=== PATIENT | female | born 1975 | race Caucasian/White ===

== ENCOUNTER 2017-01-14 10:40 | Emergency (ER) | payer MEDICAID, OTHER ==
--- NOTE | 2017-01-14 11:14 | EDPHY ---
H & P Stated Complaint: abdominal pain starting this morning possible miscarriage Time Seen by Provider: 01/14/17 10:42 HPI/ROS: CHIEF COMPLAINT: abdominal cramping and vaginal bleeding HISTORY OF PRESENT ILLNESS: 41-year-old female presents emergency department reporting lower abdominal cramping and vaginal bleeding that started at 6 o' clock this morning. Patient reports she has only bled through 1 pad, she denies any clots or tissue. Patient reports the abdominal cramping is intermittent. Patient states she did a home test 2 days ago that was positive. Last menstrual cycle was 8 weeks ago. Patient has a living son, . Patient reports she takes hydroxyzine seen as needed for anxiety and stopped taking her Wellbutrin 2 days ago when she found out she was . Patient denies nausea, vomiting, fevers or diarrhea. She denies urinary frequency, urgency or dysuria. Patient denies drug or alcohol use. REVIEW OF SYSTEMS: A comprehensive 10 point review of systems is otherwise negative aside from elements mentioned in the history of present illness. Source: Patient, EMS - Personal History LMP (Females 10-55): Current Tetanus/Diphtheria Vaccine: Unsure Current Tetanus Diphtheria and Acellular Pertussis (TDAP): Unsure - Medical/Surgical History Hx Asthma: Yes Hx Chronic Respiratory Disease: No Hx Diabetes: No Hx Cardiac Disease: No Hx Renal Disease: No Hx Cirrhosis: Yes Hx Alcoholism: No Hx HIV/AIDS: No Hx Splenectomy or Spleen Trauma: No Other PMH: PTSD, anxiety, broken foot - Social History Smoking Status: Current every day smoker - Physical Exam Exam: Physical Exam Gen: Alert and Oriented, NAD HEENT: PERRL, moist mucous membranes NECK: no meningismus CV: regular rate and regular rhythm PULM: CTAB, no wheezes ABDOMEN: soft, mild suprapubic tenderness to palpation, BS present BACK: No CVA tenderness NEURO: Neurologically grossly intact EXTREMITIES: normal appearing SKIN: Few abrasions with bruises to bilateral arms PSYCH: answers questions appropriately. Constitutional: Initial Vital Signs Temperature (C) 36.7 C 01/14/17 10:40 Heart Rate 74 01/14/17 10:40 Respiratory Rate 20 01/14/17 10:40 Blood Pressure 122/71 H 01/14/17 10:40 O2 Sat (%) 100 01/14/17 10:40 O2 Delivery Mode Room Air Allergies/Adverse Reactions: Sulfa (Sulfonamide Antibiotics) [Sulfa(Sulfonamide Antibiotics)] Allergy (Severe , Verified 01/14/17 10:51) Anaphylaxis Penicillins Allergy (Verified 01/14/17 10:51) Home Medications: Medication Instructions Recorded Albuterol [Proventil Inhaler (RX)] 1 - 2 puffs IH Q4 PRN 12/01/12 Beclomethasone Qvar 40 [Qvar 40] 2 puffs IH BID #1 mdi 12/01/12 Ibuprofen 800 mg PO Q8 PRN 12/01/12 Multivitamins [Tab-A-Patrick] 1 each PO DAILY 12/01/12 hydrOXYzine HCL 01/14/17 Medical Decision Making - Diagnostics Imaging: Imaging Impressions Pelvic/Renal Ultrasound 01/14/17 11:33 Impression: 1. No IUP. 2. Collapsing left ovarian cyst. Results discussed with Paul Isaac. ED Course/Re-evaluation: 41-year-old female presents with abdominal cramping and vaginal bleeding. She reports a home test 2 days ago that was positive. Patient has a flat affect, does not look at me went speaking to me and has multiple rash needle beavers with small scabs, patient reports she was seen at an urgent care 2 days ago in [place] for anxiety and had a student nurse starting her IVs with multiple times. Patient will not give me the name of this urgent care. CBC and chemistry panel are unremarkable, serum test is negative. Urinalysis shows no evidence of infection. Pelvic ultrasound is unremarkable with no evidence of , no evidence ectopic . The patient is likely having her normal menstrual cycle with menstrual cramps. She reports she does normally get menstrual cramps these feel stronger than usual. She is given 15 mg of IV Toradol in the emergency department and is discharged home. She is given strict return precautions for any worsening symptoms, new symptoms or concerns. [facility] given [facility] for [facility] -[facility]. Differential Diagnosis: The differential diagnosis for the patient's vaginal bleeding included but was not limited to ectopic , menses, miscarriage, and dysfunctional uterine bleeding. - Data Points Laboratory Results: Laboratory Results 01/14/17 11:01 01/14/17 11:01 01/14/17 01/14/17 01/14/17 12:35 11:01 11:01 WBC RBC Hgb Hct MCV MCH MCHC RDW Plt Count MPV Neut % (Auto) Lymph % (Auto) [place] % (Auto) Eos % (Auto) Baso % (Auto) Nucleat RBC Rel Count Absolute Neuts (auto) Absolute Lymphs (auto) Absolute Monos (auto) Absolute Eos (auto) Absolute Basos (auto) Absolute Nucleated RBC Immature Gran % Immature Gran # Sodium 141 mEq/L mEq/L (134-144) Potassium 3.9 mEq/L mEq/L (3.5-5.2) Chloride 109 mEq/L mEq/L (97-110) Carbon Dioxide 25 mEq/l mEq/l (22-31) Anion Gap 7 mEq/L L mEq/L (8-16) BUN 17 mg/dL mg/dL (7-23) Creatinine 0.6 mg/dL mg/dL (0.6-1.0) Estimated GFR > 60 Glucose 100 mg/dL mg/dL (70-100) Calcium 9.0 mg/dL mg/dL (8.5-10.4) Beta HCG, Qual NEGATIVE Urine Color COLORLESS Urine Appearance CLEAR Urine pH 7.0 (5.0-7.5) Ur Specific [place] 1.004 (1.002-1.030) Urine Protein NEGATIVE (NEGATIVE) Urine Ketones NEGATIVE (NEGATIVE) Urine Blood 3+ H (NEGATIVE) Urine Nitrate NEGATIVE (NEGATIVE) Urine Bilirubin NEGATIVE (NEGATIVE) Urine Urobilinogen NEGATIVE EU EU (0.2-1.0) Ur Leukocyte Esterase NEGATIVE (NEGATIVE) Urine RBC 1-3 /hpf /hpf (0-3) Urine WBC Not Reported Ur Epithelial Cells TRACE /lpf /lpf (NONE-1+) Urine Bacteria TRACE /hpf H /hpf (NONE SEEN) Ur Culture Indicated? NOT INDICATED (NI) Urine Glucose NEGATIVE (NEGATIVE) 01/14/17 11:01 WBC 7.14 10^3/uL 10^3/uL (3.80-9.50) RBC 3.84 10^6/uL L 10^6/uL (4.18-5.33) Hgb 11.9 g/dL L g/dL (12.6-16.3) Hct 35.7 % L % (38.0-47.0) MCV 93.0 fL fL (81.5-99.8) MCH 31.0 pg pg (27.9-34.1) MCHC 33.3 g/dL g/dL (32.4-36.7) RDW 13.4 % % (11.5-15.2) Plt Count 267 10^3/uL 10^3/uL (150-400) MPV 8.7 fL fL (8.7-11.7) Neut % (Auto) 58.8 % % (39.3-74.2) Lymph % (Auto) 31.5 % % (15.0-45.0) [place] % (Auto) 7.4 % % (4.5-13.0) Eos % (Auto) 1.3 % % (0.6-7.6) Baso % (Auto) 0.7 % % (0.3-1.7) Nucleat RBC Rel Count 0.0 % % (0.0-0.2) Absolute Neuts (auto) 4.20 10^3/uL 10^3/uL (1.70-6.50) Absolute Lymphs (auto) 2.25 10^3/uL 10^3/uL (1.00-3.00) Absolute Monos (auto) 0.53 10^3/uL 10^3/uL (0.30-0.80) Absolute Eos (auto) 0.09 10^3/uL 10^3/uL (0.03-0.40) Absolute Basos (auto) 0.05 10^3/uL 10^3/uL (0.02-0.10) Absolute Nucleated RBC 0.00 10^3/uL 10^3/uL (0-0.01) Immature Gran % 0.3 % % (0.0-1.1) Immature Gran # 0.02 10^3/uL 10^3/uL (0.00-0.10) Sodium Potassium Chloride Carbon Dioxide Anion Gap BUN Creatinine Estimated GFR Glucose Calcium Beta HCG, Qual Urine Color Urine Appearance Urine pH Ur Specific [place] Urine Protein Urine Ketones Urine Blood Urine Nitrate Urine Bilirubin Urine Urobilinogen Ur Leukocyte Esterase Urine RBC Urine WBC Ur Epithelial Cells Urine Bacteria Ur Culture Indicated? Urine Glucose Departure - Departure Disposition: Home, Routine, Self-Care Clinical Impression: Dysmenorrhea Condition: Good Instructions: Dysmenorrhea (ED) Additional Instructions: Take 600 mg of ibuprofen every 8 hours with food for 3-5 days, heating pad to your abdomen. Follow up with [facility] for continued symptoms, return to the emergency department for any worsening symptoms, new symptoms or concerns. Referrals: [facility],. [Clinic] - As per Instructions
[2017-01-14 11:16] LABS: % IMMATURE GRANULYOCYTES 0.3 % (0.0-1.1); ABSOLUTE IMMATURE GRANULOCYTES 0.02 10^3/uL (0.00-0.10); ADD DIFF? NO; ADD MORPH? NO; ADD SCAN? NO; ATYPICAL LYMPHOCYTE FLAG 40 (0-99); FRAGMENT RBC FLAG 0 (0-99); HEMATOCRIT 35.7 % (38.0-47.0); HEMOGLOBIN 11.9 g/dL (12.6-16.3); LEFT SHIFT FLG 0 (0-99); LIPEMIA HEMOLYSIS FLAG 80 (0-99); MEAN CELL HEMOGLOBIN CONCENTR. 33.3 g/dL (32.4-36.7); MEAN PLATELET VOLUME 8.7 fL (8.7-11.7); PLATELET CLUMPS FLAG 0 (0-99); PLATELET COUNT 267 10^3/uL (150-400); RED BLOOD CELL COUNT 3.84 10^6/uL (4.18-5.33); RED CELL DISTRIBUTION WIDTH 13.4 % (11.5-15.2)
[2017-01-14 11:31] LABS: ANION GAP 7 mEq/L (8-16); CARBON DIOXIDE 25 mEq/l (22-31); CHLORIDE 109 mEq/L (97-110); CREATININE 0.6 mg/dL (0.6-1.0); GLOMERULAR FILTRATION RATE > 60; GLUCOSE 100 mg/dL (70-100); POTASSIUM 3.9 mEq/L (3.5-5.2); SODIUM 141 mEq/L (134-144)
[2017-01-14 12:07] VITALS: TEMP 98.2
[2017-01-14 12:44] LABS: COLOR COLORLESS; LEUKOCYTE ESTERASE,URINE NEGATIVE (NEGATIVE); NITRITE,URINE NEGATIVE (NEGATIVE)
[2017-01-14 12:51] LABS: BACTERIA TRACE /hpf (NONE SEEN)
[2017-01-14] MEDS ORDERED: KETOROLAC 15 MG/1 ML SDV ONE (12:57)
[2017-01-14 14:16] VITALS: BP 134/80; PULSE 80; RESP 16; O2SAT 96
== END 2017-01-14 14:16 | disposition home or self-care (01) ==
LOC: EDUNIT#
DX: N94.6 Dysmenorrhea, unspecified (principal); J45.909 Unspecified asthma, uncomplicated; F17.200 Nicotine dependence, unspecified, uncomplicated
CPT/HCPCS: J1885

== ENCOUNTER 2017-01-14 19:51 | Emergency (ER) | payer MEDICAID ==
--- NOTE | 2017-01-14 19:56 | EDPHY ---
H & P Stated Complaint: Heavy menstrual bleeding Time Seen by Provider: 01/14/17 20:42 HPI/ROS: This is a 41-year-old female presenting to the emergency department via EMS. EMS arrival patient was sleeping in the bed, EMS reports patient called due to increased abdominal pain and vaginal bleeding, blood glucose in the field with 67, VSS. Patient was seen earlier today for dysmenorrhea, patient states the pain has worsened and has gone through 4 pads heavy bleeding since this morning. Patient states her last menstrual period was 3 months ago, ultrasound from today negative HCG, negative IUP. REVIEW OF SYSTEMS: Constitutional: No fever no chills Eyes: No blurred vision ENT: No sore throat Respiratory: No shortness of breath Cardiac: No chest pain Gastrointestinal: Abdominal cramping Genitourinary: Vaginal bleeding on menses Musculoskeletal: No joint pain Skin: No rash Neurological: No headache or dizziness Source: Patient, EMS Exam Limitations: No limitations - Personal History LMP (Females 10-55): Irregular (on menses now) - Medical/Surgical History Hx Asthma: Yes Hx Chronic Respiratory Disease: No Hx Diabetes: No Hx Cardiac Disease: No Hx Renal Disease: No Hx Cirrhosis: Yes Hx Alcoholism: No Hx HIV/AIDS: No Hx Splenectomy or Spleen Trauma: No Other PMH: PTSD, anxiety, broken foot - Social History Smoking Status: Current every day smoker - Physical Exam Exam: CONSTITUTIONAL: patient appeared well nourished, non-ill appearing and normally developed. No acute distress. Vital signs as documented. HEENT: Normocephalic atraumatic. NECK: Supple, FROM without pain RESP: Non-labored resp effort, airway patent, CTAB CARDIAC: RRR w/o murmur, geraldine. Normal S1/S2 GI: Abd soft with suprapubic tenderness NEURO: AAOx3 ambulatory without gait disturbance EXTREMITIES: FROM without pain or difficulty. Positive cms intact SKIN: Warm and dry no rash PSYCH: Normal affect, calm, no distress Constitutional: Initial Vital Signs Temperature (C) 36.6 C 01/14/17 20:03 Heart Rate 83 01/14/17 20:03 Respiratory Rate 20 01/14/17 20:03 Blood Pressure 121/69 H 01/14/17 20:03 O2 Sat (%) 99 01/14/17 20:03 O2 Delivery Mode Room Air Allergies/Adverse Reactions: Sulfa (Sulfonamide Antibiotics) [Sulfa(Sulfonamide Antibiotics)] Allergy (Severe , Verified 01/14/17 20:02) Anaphylaxis Penicillins Allergy (Verified 01/14/17 20:02) Home Medications: Medication Instructions Recorded Albuterol [Proventil Inhaler (RX)] 1 - 2 puffs IH Q4 PRN 12/01/12 Beclomethasone Qvar 40 [Qvar 40] 2 puffs IH BID #1 mdi 12/01/12 Ibuprofen 800 mg PO Q8 PRN 12/01/12 Multivitamins [Tab-A-Patrick] 1 each PO DAILY 12/01/12 Wellbutrin Sr 01/14/17 hydrOXYzine HCL 01/14/17 Medical Decision Making ED Course/Re-evaluation: Discussed plan of care the patient: Toradol for pain control, I also reviewed previous medical records from today 2119: Patient feeling better, discussed discharge plan with patient will sent home with some pain medicine, she can also use ibuprofen [id number] at heating pad. Recommend following up with your primary care or mattress filling machine tender, patient agreed to plan. Discharge home---> stable, discussed plan of care Differential Diagnosis: Differential diagnosis considered but not limited to ovarian torsion, PCOS, ovarian cyst rupture - Data Points Medications Given: Discontinued Medications Ketorolac Tromethamine (Toradol) 30 mg IVP EDNOW ONE Stop: 01/14/17 20:05 Last Admin: 01/14/17 20:16 Dose: 30 mg Departure - Departure Disposition: Home, Routine, Self-Care Clinical Impression: Dysmenorrhea Condition: Good Additional Instructions: 1. you can take ibuprofen as needed 600 mg to 800 mg every 6-8 hours as needed 2. Warm heating pad to area 3. Follow up with your primary care provider or mattress filling machine tender as needed Referrals: [facility] [Other] - As per Instructions [facility],. [Clinic] - As per Instructions
[2017-01-14] MEDS ORDERED: KETOROLAC 30 MG/1 ML SDV IVP ONE (20:04)
[2017-01-14 20:06] VITALS: RESP 20
[2017-01-14] MEDS ORDERED: HYDROCOD/APAP 5/325 PREPACK#6 BTL TAKEHOME ONE (21:25)
[2017-01-14 22:30] VITALS: BP 113/68; PULSE 78; TEMP 98.2; O2SAT 98
== END 2017-01-14 22:30 | disposition home or self-care (01) ==
LOC: EDUNIT#
DX: N94.6 Dysmenorrhea, unspecified (principal); J45.909 Unspecified asthma, uncomplicated; F17.200 Nicotine dependence, unspecified, uncomplicated
CPT/HCPCS: 96374; J1885

== ENCOUNTER 2018-01-27 20:27 | Emergency (ER) | payer MEDICAID ==
--- NOTE | 2018-01-27 20:45 | EDPHY ---
H & P Source: Patient Exam Limitations: No limitations - Medical/Surgical History Hx Asthma: Yes Hx Chronic Respiratory Disease: No Hx Diabetes: No Hx Cardiac Disease: No Hx Renal Disease: No Hx Cirrhosis: Yes Hx Alcoholism: No Hx HIV/AIDS: No Hx Splenectomy or Spleen Trauma: No Other PMH: PTSD, anxiety, broken foot - Social History Smoking Status: Current every day smoker Time Seen by Provider: 01/27/18 20:44 HPI/ROS: CHIEF COMPLAINT: Headache following reported seizure HISTORY OF PRESENT ILLNESS: The patient presents to the ED with complaints of headache following a reported seizure. The patient was at [facility] where she reportedly had a normal CBC and chemistry panel. She has a history of polysubstance abuse. She is a alcoholic as well as narcotic abuser. She currently is receiving methadone. The patient complains of a headache with concerns that she has not been adequately evaluated for intracranial hemorrhage. She is requesting a head CT scan. The patient denies any abdominal pain, vomiting, numbness, weakness, neck pain, chest pain or difficulty breathing. REVIEW OF SYSTEMS: A comprehensive 10 point review of systems is otherwise negative aside from elements mentioned in the history of present illness. (Saroj Chavez) - Physical Exam Exam: General Appearance: Alert, slightly tremulous, no acute distress Eyes: Pupils equal and round no pallor or injection ENT, Mouth: Mucous membranes moist Respiratory: There are no retractions, lungs are clear to auscultation Cardiovascular: Regular rate and rhythm Gastrointestinal: Abdomen is soft and nontender, no masses, bowel sounds normal Neurological: A&O, normal motor function, normal sensory exam, normal cranial nerves Skin: Warm and dry, no rashes Musculoskeletal: Neck is supple nontender Extremities: symmetrical, full range of motion (Saroj Chavez) Constitutional: Initial Vital Signs Temperature (C) 36.9 C 01/27/18 21:11 Heart Rate 96 01/27/18 21:11 Respiratory Rate 16 01/27/18 21:11 Blood Pressure 121/65 H 01/27/18 21:11 O2 Delivery Mode Nasal Cannula O2 (L/minute) 2 Allergies/Adverse Reactions: Sulfa (Sulfonamide Antibiotics) [Sulfa(Sulfonamide Antibiotics)] Allergy (Severe , Verified 01/14/17 20:02) Anaphylaxis Penicillins Allergy (Verified 01/14/17 20:02) Home Medications: Medication Instructions Recorded Advair 250/50 (*) 01/27/18 Methadone HCl 01/27/18 Zofran 01/27/18 buPROPion 01/27/18 Medical Decision Making - Diagnostics Imaging Results: Imaging Impressions Head CT 01/27/18 21:04 Impression: Tight ambient cistern possibly related to a pineal lesion. Recommendation: MRI of the brain without and with contrast. Results called to Dr. Siddharth Chavez at 9:37 PM General information for patients regarding this examination can be found at [email or web address]. If you have questions or comments about this report, please contact me at (hospital) or [phone] (cell). Chest X-Ray 01/27/18 21:20 Impression: Normal. ED Course/Re-evaluation: I reviewed the patient's past medical records including her numerous emergency department visits for withdrawal related symptoms and concerns about a eminent seizure. Given the patient's complaints of headache following a seizure with reported trauma I have ordered a CT scan of the head. CT scan of the head demonstrates a questionable abnormality in the pineal gland. Dr. Woodard has recommended an MRI of the brain with and without contrast which has been ordered. Additionally the patient was noted to have hypoxemia emergency department with an oxygen saturation of 78% on room air. A two view chest x-ray demonstrates no evidence of obvious pneumonia. The patient was given a DuoNeb in the emergency department. A D-dimer test has been ordered. The patient's D-dimer test is negative which I feel adequately excludes pulmonary embolism. Her hypoxemia is undoubtedly secondary to her tobacco and narcotic use. Pending at this time is an MRI of the patient's brain. This is negative the patient will be discharged home with instructions to continue her albuterol inhaler and follow up with our on-call neurologist. (Saroj Chavez) 1407: This patient return from MRI she was unable to tolerate the MRI. She is requesting to leave against medical advice. She does not want any sedation. I had a long discussion with her and recommended that we give her something for anxiety to obtain her MRI given the abnormality seen on her CT. However after long discussion with the patient she has declined the MRI and wants to leave. I do recommend she follows up with primary care doctor. Additionally if she wants to obtain the MRI garcia 1 welcome to come back at any time. She understands the risk of not getting the MRI this evening. I explained that she has an abnormality on her CT and this needs close follow-up. She understands. ( Jude Mcdaniel) Differential Diagnosis: Differential diagnosis considered includes intracranial hemorrhage, skull fracture, status epilepticus, metabolic abnormality, pulmonary embolism, PIPE RACKER tumor, pneumonia (Saroj Chavez) - Data Points Laboratory Results: Laboratory Results 01/27/18 21:55 01/27/18 21:55 01/27/18 01/27/18 01/27/18 21:55 21:55 21:55 WBC 4.72 10^3/uL 10^3/uL (3.80-9.50) RBC 3.78 10^6/uL L 10^6/uL (4.18-5.33) Hgb 11.4 g/dL L g/dL (12.6-16.3) Hct 35.1 % L % (38.0-47.0) MCV 92.9 fL fL (81.5-99.8) MCH 30.2 pg pg (27.9-34.1) MCHC 32.5 g/dL g/dL (32.4-36.7) RDW 15.9 % H % (11.5-15.2) Plt Count 262 10^3/uL 10^3/uL (150-400) MPV 9.4 fL fL (8.7-11.7) Neut % (Auto) 54.9 % % (39.3-74.2) Lymph % (Auto) 29.9 % % (15.0-45.0) [place] % (Auto) 12.7 % % (4.5-13.0) Eos % (Auto) 1.9 % % (0.6-7.6) Baso % (Auto) 0.4 % % (0.3-1.7) Nucleat RBC Rel Count 0.0 % % (0.0-0.2) Absolute Neuts (auto) 2.59 10^3/uL 10^3/uL (1.70-6.50) Absolute Lymphs (auto) 1.41 10^3/uL 10^3/uL (1.00-3.00) Absolute Monos (auto) 0.60 10^3/uL 10^3/uL (0.30-0.80) Absolute Eos (auto) 0.09 10^3/uL 10^3/uL (0.03-0.40) Absolute Basos (auto) 0.02 10^3/uL 10^3/uL (0.02-0.10) Absolute Nucleated RBC 0.00 10^3/uL 10^3/uL (0-0.01) Immature Gran % 0.2 % % (0.0-1.1) Immature Gran # 0.01 10^3/uL 10^3/uL (0.00-0.10) D-Dimer 0.32 ug/mLFEU ug/mLFEU (0.00-0.50) Sodium 135 mEq/L mEq/L (135-145) Potassium 4.2 mEq/L mEq/L (3.5-5.2) Chloride 98 mEq/L mEq/L (97-110) Carbon Dioxide 32 mEq/l H mEq/l (22-31) Anion Gap 5 mEq/L L mEq/L (8-16) BUN 10 mg/dL mg/dL (7-23) Creatinine 0.7 mg/dL mg/dL (0.6-1.0) Estimated GFR > 60 Glucose 73 mg/dL mg/dL (70-100) Calcium 8.8 mg/dL mg/dL (8.5-10.4) Medications Given: Discontinued Medications Albuterol (Proventil Neb) 3 ml IH EDNOW ONE Stop: 01/27/18 21:49 Last Admin: 01/27/18 21:58 Dose: 3 ml Diphenhydramine HCl (Benadryl Injection) 50 mg IVP EDNOW ONE Stop: 01/27/18 22:40 Last Admin: 01/27/18 22:40 Dose: 50 mg Departure - Departure Disposition: Against Medical Advice Clinical Impression: Seizure, Brain tumor Alcohol dependence Qualifiers: Substance use status: uncomplicated Qualified Code(s): F10.20 - Alcohol dependence, uncomplicated Asthma Qualifiers: Asthma severity: unspecified severity Asthma persistence: unspecified Asthma complication type: unspecified Qualified Code(s): J45.909 - Unspecified asthma, uncomplicated Condition: Good Instructions: Asthma (ED) Additional Instructions: 1. You have been given the contact number of our neurologist. 2. Please use albuterol inhaler 2 puffs up to every 4 hr as needed for cough and shortness of breath. 3. On her CT scan we saw in abnormality. This needs to be further evaluated by an MRI. Please follow up with her primary care doctor or neurologist to obtain an MRI. Referrals: Noah Grace MD [Medical Doctor] - As per Instructions
[2018-01-27 21:19] VITALS: BP 121/65
[2018-01-27] MEDS ORDERED: ALBUTEROL 3 ML DEYVIAL IH ONE (21:48)
[2018-01-27 22:06] LABS: PLATELET COUNT 262 10^3/uL (150-400)
[2018-01-27] MEDS ORDERED: ALBUTEROL INH PREPACK MDI TAKEHOME ONE (22:32)
== END 2018-01-27 23:18 | disposition left against medical advice (07) ==
DX: R56.9 Unspecified convulsions (principal); C71.9 Malignant neoplasm of brain, unspecified; J45.909 Unspecified asthma, uncomplicated; F10.20 Alcohol dependence, uncomplicated; F17.200 Nicotine dependence, unspecified, uncomplicated
CPT/HCPCS: 96374; J1200; J7613